=== PATIENT | female | born 1990 | race Caucasian/White ===

== ENCOUNTER 2021-08-29 11:04 | Inpatient (IN) | payer OTHER, SELFPAY ==
[~2021-08-29] VITALS: Ht 160 cm; Wt 77.4 kg
[2021-08-29] VITALS (24 sets, daily range): BP systolic 109–143; BP diastolic 72–93
[2021-08-29] MEDS ORDERED: PRENTAB9 PO (11:19)
[2021-08-29] MEDS ORDERED: ASPI81CH33 PO (11:19)
[2021-08-29] MEDS ORDERED: HOME MED LIST COMPLETE! XX SCH (11:20)
[2021-08-29] MEDS ORDERED: OXYTOCIN DRIP 30 UNITS in IV 1 EA IV PRN ×4 (12:15)
[2021-08-29] MEDS ORDERED: OXYTOCIN INJ 10 UNITS/ML VIAL (J2590) IV PRN (12:15)
[2021-08-29] MEDS ORDERED: METHYLERGONOVINE MALEATE 0.2 MG/ML VIAL (J2210) IM PRN (12:15)
[2021-08-29] MEDS ORDERED: TRANEXAMIC ACID INJection 1,000 MG in NS 100 ML IV PRN (12:15)
[2021-08-29 12:34] LABS: HEMOGLOBIN 12.9 g/dl (12.0-15.5); MEAN CORPUSCULAR HEMOGLOBIN 31.8 pg (27.0-33.0); MEAN CORPUSCULAR HGB CONC 33.9 g/dl (32.0-36.5); MEAN CORPUSCULAR VOLUME 93.6 fl (80.0-96.0); PLATELET COUNT, AUTOMATED 237 10^3/uL (150-450); RED BLOOD COUNT 4.06 10^6/uL (4.00-5.40); WHITE BLOOD COUNT 8.9 10^3/uL (4.0-10.0)
[2021-08-29] MEDS ORDERED: fentaNYL 100 MCG/2 ML INJECTION As Ordered ONE (12:42)
[2021-08-29] MEDS ORDERED: FENTANYL 2MCG/ML ROPIVACAINE 0.2% IN 0.9% NACL 100ML IVBAG As Ordered ONE (12:44)
[2021-08-29] MEDS ORDERED: LACTATED RINGER'S 1000 ML IV ONE (12:45)
[2021-08-29] MEDS ORDERED: LR 1,000 ML IV SCH ×2 (13:00→17:55)
[2021-08-29] MEDS ORDERED: NALOXONE INJ 0.4MG/1ML VIAL (J2310 PER 1MG) IV PRN (14:00)
[2021-08-29] MEDS ORDERED: LR 500 ML IV PRN (14:00)
[2021-08-29] MEDS ORDERED: diphenhydrAMINE 50MG/ML VIAL (J1200) IV PRN (14:00)
[2021-08-29] MEDS ORDERED: EPIDURAL/PCA KEYS XX PRN (14:00)
[2021-08-29] MEDS ORDERED: ONDANSETRON 4MG/2ML VIAL IV PRN (14:00)
[2021-08-29] MEDS ORDERED: ePHEDrine SULFATE 25 MG/5 ML(5MG/ML) SYRINGE IVP PRN (14:00)
[2021-08-29] MEDS ORDERED: FENTANYL/ROPIVACAINE/NACL BAG 100 ML EPIDURAL SCH (14:15)
[2021-08-29 17:30] LABS: CORD GAS ABE A -1.4; CORD GAS O2 SAT A 71.2 %; CORD GAS PCO2 A 42.7 mmHg; CORD GAS PH A 7.368 UNITS; CORD GAS PO2 A 29.6 mmHg; CORD GAS SBC A 22.7 MEQ/L; CORD GAS TCO2 A 25.3 MEQ/L
[2021-08-29 17:31] LABS: CORD GAS ABE V -2.4; CORD GAS HCO3 V 22.7 MEQ/L; CORD GAS O2 SAT V 75.1 %; CORD GAS PCO2 V 40.3 mmHg; CORD GAS PH V 7.369 UNITS; CORD GAS PO2 V 31.2 mmHg
[2021-08-29] MEDS ORDERED: DIBUCAINE 1% OINTMENT 30GM TOP PRN (17:55)
[2021-08-29] MEDS ORDERED: ANUSOL HC CREAM 30GM TOP PRN (17:55)
[2021-08-29] MEDS ORDERED: RHOGAM 300 MCG (1500 IU) INJ (J2790) IM SCH (17:55)
[2021-08-29] MEDS ORDERED: ACETAMINOPHEN 500 MG TAB PO PRN (17:55)
[2021-08-29] MEDS ORDERED: ACETAMINOPHEN TAB 650MG DOSE (2X325MG) PO PRN (17:55)
[2021-08-29] MEDS ORDERED: MOM 30ML SUSPENSION UDC PO PRN (17:55)
[2021-08-29] MEDS ORDERED: OXYTOCIN DRIP 30 UNITS in IV 1 EA IV SCH ×4 (17:55)
[2021-08-29] MEDS ORDERED: METHYLERGONOVINE MALEATE 0.2 MG TAB PO PRN (17:55)
[2021-08-29] MEDS ORDERED: OXYTOCIN INJ 10 UNITS/ML VIAL (J2590) IV ONE (17:55)
[2021-08-29] MEDS ORDERED: DOCUSATE SODIUM 100MG CAPSULE PO PRN (17:55)
[2021-08-29] MEDS: IBUPROFEN 600MG TAB PO PRN (22:22)
[2021-08-30 06:06] VITALS: BP 119/77
[2021-08-30 07:40] LABS: HEMATOCRIT 35.5 % (36.0-47.0); HEMOGLOBIN 12.1 g/dl (12.0-15.5); MEAN CORPUSCULAR HEMOGLOBIN 31.9 pg (27.0-33.0); MEAN CORPUSCULAR HGB CONC 34.1 g/dl (32.0-36.5); MEAN CORPUSCULAR VOLUME 93.7 fl (80.0-96.0); PLATELET COUNT, AUTOMATED 167 10^3/uL (150-450); RED BLOOD COUNT 3.79 10^6/uL (4.00-5.40); WHITE BLOOD COUNT 9.8 10^3/uL (4.0-10.0)
[2021-08-30] MEDS: PRENATAL VITAMINS CHEWABLE TABLET PO SCH (08:51)
[2021-08-30] MEDS: IBUPROFEN 600MG TAB PO PRN ×2 (08:51→19:25)
[2021-08-30 18:00] VITALS: BP 138/75
[2021-08-31 05:36] VITALS: BP 145/88
[2021-08-31] MEDS: IBUPROFEN 600MG TAB PO PRN (08:26)
[2021-08-31] MEDS: PRENATAL VITAMINS CHEWABLE TABLET PO SCH (08:27)
[2021-08-31] MEDS ORDERED: MEASLES,MUMPS,RUBELLA VACCINE INJ (MMR-II) (90707) SC.IMMUN ONE (09:00)
== END 2021-08-31 11:48 | disposition home or self-care (01) | DRG 807 ==
LOC: M LDI 11:04 → M OBS 19:45
PROVIDERS: ADMIT Obstetrics & Gynecology; ATTEND Obstetrics & Gynecology
PROC: 10E0XZZ Delivery of Products of Conception, External Approach (ICD-10-PCS; principal; 2021-08-29)
PROC: 10907ZC Drainage of Amniotic Fluid, Therapeutic from Products of Conception, Via Natural or Artificial Opening (ICD-10-PCS; 2021-08-29)
DX: O80 Encounter for full-term uncomplicated delivery (principal); Z37.0 Single live birth; Z3A.39 39 weeks gestation of pregnancy

== ENCOUNTER → 2024-02-25 | Outpatient (REF) | payer OTHER ==
[~2024-02-25] MED LIST: ASPI81CH33 PO; PRENTAB9 PO
== END ==
LOC: M LAB REF 12:59
PROVIDERS: ATTEND Physician Assistant Medical
DX: J02.9 Acute pharyngitis, unspecified (principal)